=== PATIENT | male | born 1970 | race Caucasian/White ===

== ENCOUNTER 2024-07-17 06:25 | Day surgery (SDC) | payer BC, SELFPAY | END 2024-07-17 12:43 | disposition home or self-care (01) | LOC: GI 06:25 | PROVIDERS: ATTENDING PHYSICIAN Internal Medicine | DX: Z12.11 Encounter for screening for malignant neoplasm of colon (principal); Z83.710 Family history of adenomatous and serrated polyps; K62.89 Other specified diseases of anus and rectum; K55.20 Angiodysplasia of colon without hemorrhage; K63.5 Polyp of colon | CPT/HCPCS: 45385; 45380; 88305 ==